=== PATIENT | female | born 1980 | race Caucasian/White ===

== ENCOUNTER → 2017-02-11 | Outpatient (CLI) | payer OTHER ==
[~2017-02-11] VITALS: Ht 172.7 cm; Wt 64.0 kg
[2017-02-11 07:55] LABS: BUN/CREATININE RATIO 13 (0-10)
[2017-02-11 07:57] LABS: HEMOGLOBIN 13.1 gm/dl (12.3-15.3); RED BLOOD COUNT 4.1 M/UL (4.00-5.10); WHITE BLOOD COUNT 13.1 K/UL (4.5-11.0)
== END ==
LOC: OPSV 07:00
PROVIDERS: Internal Medicine Gastroenterology
DX: K50.90 Crohn's disease, unspecified, without complications (principal)
CPT/HCPCS: 36415; 80053; 85025; 86140; 96365; J3380

== ENCOUNTER → 2017-02-26 | Outpatient (CLI) | payer OTHER | LOC: KOH-I 10:48 | DX: R07.81 Pleurodynia (principal) | CPT/HCPCS: 71010; 71101 ==

== ENCOUNTER → 2017-03-20 | Outpatient (CLI) | payer OTHER ==
[2017-03-20 09:34] LABS: HEMOGLOBIN 12.8 gm/dl (12.3-15.3); RED BLOOD COUNT 3.97 M/UL (4.00-5.10); WHITE BLOOD COUNT 12.3 K/UL (4.5-11.0)
[2017-03-20 09:52] LABS: BUN/CREATININE RATIO 11 (0-10)
== END ==
LOC: LAB 08:31
PROVIDERS: Physician Assistant
DX: K50.00 Crohn's disease of small intestine without complications (principal)
CPT/HCPCS: 36415; 80053; 82607; 82728; 83540; 83550; 85025; 86140

== ENCOUNTER → 2017-04-08 | Outpatient (CLI) | payer OTHER ==
[~2017-04-08] VITALS: Ht 175.3 cm; Wt 61.7 kg
[2017-04-08 07:32] LABS: HEMOGLOBIN 12.7 gm/dl (12.3-15.3); RED BLOOD COUNT 3.96 M/UL (4.00-5.10); WHITE BLOOD COUNT 8.5 K/UL (4.5-11.0)
[2017-04-08 07:49] LABS: BUN/CREATININE RATIO 9 (0-10)
== END ==
LOC: OPSV 07:00
PROVIDERS: Internal Medicine Gastroenterology
DX: K50.90 Crohn's disease, unspecified, without complications (principal)
CPT/HCPCS: 36415; 80053; 85025; 86140; 96365; J3380

== ENCOUNTER 2021-04-25 21:23 | Emergency (ER) | payer OTHER ==
[~2021-04-25 21:23] MED LIST: AMITRIPTYLINE H10 MG PO; BIOTIN 800 MCG1 EACH PO; CBD OIL SL; COLACE100 MG PO; CYANOCOBAL1000 MCG/1 INJ; IBU600 MG PO; IBUPROFEN200 M1 PO; MAGNESIUM CITR100 MG PO; MELATONIN5 M5 PO; NORCO 5-325 TA1 EACH PO; NORCO 7.5-3251 EACH PO; ONDANSETRON HCL4 MG PO; POTASSIUM CHLO10 ME1 PO; STELARA90 MG/1 ML SQ; TYLENOL PM PO; VIT D3 PO; VITAMIN D310000 UNIT PO; [UNRECOGNIZED DRUG - OTHER] PO
== END 2021-04-25 22:20 | disposition home or self-care (01) ==
LOC: ER1 21:23
DX: R22.1 Localized swelling, mass and lump, neck (principal); M06.9 Rheumatoid arthritis, unspecified; Z85.3 Personal history of malignant neoplasm of breast; Z90.710 Acquired absence of both cervix and uterus; Z88.8 Allergy status to other drugs, medicaments and biological substances; Z87.19 Personal history of other diseases of the digestive system
CPT/HCPCS: 99283